=== PATIENT | female | born 1935 | race Caucasian/White ===

== ENCOUNTER 2019-11-16 22:44 | Inpatient (IN) | payer OTHER ==
[~2019-11-16] VITALS: Ht 172.7 cm; Wt 43.1 kg
[2019-11-16 22:50] VITALS: BP_SYST 164
[2019-11-16] MEDS ORDERED: NACL 0.9% 1,000 ML IV ONE (23:19)
[2019-11-16 23:20] LABS: BASOPHILS # (AUTO) 0.1 K/uL (0.0-0.2); BASOPHILS % (AUTO) 0.8 % (0.0-2.0); EOSINOPHILS # (AUTO) 0.3 K/uL (0.0-0.4); EOSINOPHILS % (AUTO) 2.4 % (0.0-4.0); HEMATOCRIT 30.6 % (36-48); HEMOGLOBIN 10.1 g/dL (12.0-16.0); LYMPHOCYTES # (AUTO) 0.7 K/uL (1.0-5.5); LYMPHOCYTES % (AUTO) 6.1 % (20.5-51.5); MEAN CORPUSCULAR HEMOGLOBIN 30 pg (27-31); MEAN CORPUSCULAR HGB CONC 33 % (32-36); MEAN CORPUSCULAR VOLUME 90 fL (79.0-98.0); MONOCYTES # (AUTO) 1.1 K/uL (0.0-1.0); NEUTROPHILS # (AUTO) 9.8 K/uL (1.8-7.7); NEUTROPHILS % (AUTO) 81.7 % (40.0-70.0); PLATELET COUNT (AUTO) 441 K/uL (130-430); RED BLOOD CELL COUNT(AUTO) 3.39 MIL/uL (4.2-6.2); RED CELL DISTRIBUTION WIDTH 15.6 % (9.0-15.0); WHITE BLOOD COUNT (AUTO) 11.9 K/uL (4.8-10.8)
[2019-11-16 23:33] LABS: ANION GAP 5 (5-15); CALCIUM 8.2 mg/dL (8.4-11.0); CHLORIDE 102 mmol/L (98-107); CREATININE 0.62 mg/dL (0.55-1.30); GLUCOSE 104 mg/dL (70-99); POTASSIUM 3.6 mmol/L (3.5-5.1); SODIUM SERUM 137 mmol/L (136-145); UREA NITROGEN, BLOOD 26 mg/dL (8-21)
[2019-11-16 23:39] LABS: ALANINE AMINOTRANSFERASE 54 U/L (12-78); ALBUMIN 2.6 g/dL (3.4-4.8); ASPARTATE AMINOTRANSFERASE 16 U/L (10-37); TOTAL BILIRUBIN 0.2 mg/dL (0.0-1.0)
[2019-11-16 23:41] LABS: ALCOHOL, BLOOD < 3 mg/dL (<10)
[2019-11-16] MEDS ORDERED: FURO-149 PO (23:44)
[2019-11-16] MEDS ORDERED: DORZ10DR9 EACH EYE (23:44)
[2019-11-16] MEDS ORDERED: HYDR-4272 PO (23:44)
[2019-11-16] MEDS ORDERED: DICL75TA5 PO (23:44)
[2019-11-16] MEDS ORDERED: ONDA4TAB5 PO (23:44)
[2019-11-16] MEDS ORDERED: TRIA1TAB96 PO (23:44)
[2019-11-16] MEDS ORDERED: XOP.63 NEB (23:44)
[2019-11-16] MEDS ORDERED: BUDE1AMP IH (23:44)
[2019-11-16] MEDS ORDERED: ZOLP10TA2 PO (23:44)
[2019-11-16] MEDS ORDERED: PROP10TA10 PO (23:44)
[2019-11-16] MEDS ORDERED: IPRA4AER INH (23:44)
[2019-11-16] MEDS ORDERED: ALBU2.5V7 INH (23:44)
[2019-11-16] MEDS ORDERED: XALEYE OP (23:44)
[2019-11-16] MEDS ORDERED: DET2 PO (23:44)
[2019-11-16] MEDS ORDERED: FLO44 INH (23:44)
[2019-11-16] MEDS ORDERED: BRI.2% EACH EYE (23:44)
[2019-11-16] MEDS ORDERED: SPIRIVA INH (23:44)
[2019-11-16] MEDS ORDERED: METO-442 PO (23:44)
[2019-11-17 04:26] LABS: BARBITURATE, URINE NEGATIVE (NEG <=200); BENZODIAZEPINE, URINE NEGATIVE (NEG <=150); CANNABINOID, URINE NEGATIVE (NEG <=50); COCAINE, URINE NEGATIVE (NEG <=150); METHAMPHETAMINES SCREEN,URINE NEGATIVE (NEG <=500); OPIATE, URINE POSITIVE (NEG <=100); PHENCYCLIDINE SCREEN,URINE POSITIVE (NEG <=25); UR TRICYCLIC ANTIDEPRESSANTS NEGATIVE (NEG <=300); URINE AMPHETAMINE NEGATIVE (NEG <=500); URINE METHADONE NEGATIVE (NEG <=200); URINE OXYCODONE SCREEN NEGATIVE (NEG <=100); URINE PROPOXYPHENE SCREEN NEGATIVE (NEG <=300)
[2019-11-17 04:30] VITALS: BP_SYST 191
[2019-11-17 05:14] VITALS: BP_SYST 165; BP_SYST 191
[2019-11-17] MEDS ORDERED: LevALBUTEROL HCL 1.25 MG/0.5 ML *CONC.* VIAL.NEB (XOPENEX CONC.) INH SCH ×2 (05:30→11:00)
[2019-11-17] MEDS: METOPROLOL TARTRATE 25 MG TABLET PO SCH ×2 (05:30→08:49)
[2019-11-17] MEDS ORDERED: IPRATROPIUM/ALBUTEROL SULFATE 3 ML AMPUL.NEB (DUONEB) INH SCH (07:00)
[2019-11-17 07:30] VITALS: BP_SYST 153
[2019-11-17] MEDS: BRIMONIDINE TARTRATE 0.2% 5 mL EYE DROPS EACH EYE SCH ×2 (08:50→22:00)
[2019-11-17] MEDS: DORZOLAMIDE 2% OPHTHALMIC SOLN 5ML OP SCH ×3 (08:51→21:56)
[2019-11-17] MEDS ORDERED: ALBUTEROL SULFATE 0.083% 2.5 MG/3 ML VIAL.NEB INH PRN (09:45)
[2019-11-17] MEDS ORDERED: LEVALBUTEROL HCL 0.63 MG/3 ML VIAL.NEB INH ONE (11:50)
[2019-11-17 12:00] VITALS: BP_SYST 126
[2019-11-17] MEDS ORDERED: LEVALBUTEROL HCL 0.63 MG/3 ML VIAL.NEB INH PRN (12:00)
[2019-11-17] MEDS ORDERED: ZOLPIDEM TARTRATE 5 MG TABLET PO PRN (12:15)
[2019-11-17] MEDS ORDERED: ONDANSETRON 4 MG ODT TAB PO PRN (12:15)
[2019-11-17] MEDS ORDERED: METOPROLOL TARTRATE 50 MG TABLET PO ONE (12:30)
[2019-11-17] MEDS ORDERED: OXYBUTYNIN CHLORIDE 5 MG TABLET PO ONE (12:30)
[2019-11-17] MEDS ORDERED: DICLOFENAC SODIUM 25 MG TABLET.DR PO ONE (12:30)
[2019-11-17] MEDS: IPRATROPIUM BROM 0.5 MG/2.5 ML VIAL.NEB (ATROVENT) INH SCH ×2 (13:00→19:50)
[2019-11-17] MEDS: LEVALBUTEROL HCL 0.63 MG/3 ML VIAL.NEB INH SCH ×2 (13:00→19:50)
[2019-11-17] MEDS ORDERED: DORZOLAMIDE 2% OPHTHALMIC SOLN 5ML OP SCH (15:00)
[2019-11-17 16:00] VITALS: BP_SYST 149
[2019-11-17] MEDS: LATANOPROST 2.5 ML DROPS (XALATAN) OP SCH (17:13)
[2019-11-17] MEDS ORDERED: guaiFENesin 200 MG/10 ML UDC PO PRN (19:45)
[2019-11-17] MEDS: BUDESONIDE 0.5 MG/2 ML AMPUL.NEB INH SCH (19:50)
[2019-11-17 20:00] VITALS: BP_SYST 149
[2019-11-17] MEDS ORDERED: BRIMONIDINE TARTRATE 0.2% 5 mL EYE DROPS EACH EYE SCH (21:00)
[2019-11-17] MEDS: METOPROLOL TARTRATE 50 MG TABLET PO SCH (21:49)
[2019-11-17] MEDS: DICLOFENAC SODIUM 25 MG TABLET.DR PO SCH (21:50)
[2019-11-17] MEDS: OXYBUTYNIN CHLORIDE 5 MG TABLET PO SCH (22:07)
[2019-11-18 00:38] VITALS: BP_SYST 144
[2019-11-18] MEDS: IPRATROPIUM BROM 0.5 MG/2.5 ML VIAL.NEB (ATROVENT) INH SCH ×3 (01:00→13:00)
[2019-11-18] MEDS: LEVALBUTEROL HCL 0.63 MG/3 ML VIAL.NEB INH SCH ×3 (01:00→13:00)
[2019-11-18 06:11] LABS: BASOPHILS # (AUTO) 0.2 K/uL (0.0-0.2); BASOPHILS % (AUTO) 2.1 % (0.0-2.0); EOSINOPHILS # (AUTO) 0.5 K/uL (0.0-0.4); EOSINOPHILS % (AUTO) 4.5 % (0.0-4.0); HEMATOCRIT 33.8 % (36-48); HEMOGLOBIN 11.1 g/dL (12.0-16.0); LYMPHOCYTES # (AUTO) 1.3 K/uL (1.0-5.5); LYMPHOCYTES % (AUTO) 12.4 % (20.5-51.5); MEAN CORPUSCULAR HEMOGLOBIN 30 pg (27-31); MEAN CORPUSCULAR HGB CONC 33 % (32-36); MEAN CORPUSCULAR VOLUME 93 fL (79.0-98.0); MONOCYTES % (AUTO) 9.6 % (1.7-9.3); NEUTROPHILS # (AUTO) 7.6 K/uL (1.8-7.7); NEUTROPHILS % (AUTO) 71.4 % (40.0-70.0); PLATELET COUNT (AUTO) 535 K/uL (130-430); RED BLOOD CELL COUNT(AUTO) 3.66 MIL/uL (4.2-6.2); RED CELL DISTRIBUTION WIDTH 15.5 % (9.0-15.0); WHITE BLOOD COUNT (AUTO) 10.6 K/uL (4.8-10.8)
[2019-11-18 06:16] LABS: ANION GAP 5 (5-15); CALCIUM 8.7 mg/dL (8.4-11.0); CHLORIDE 101 mmol/L (98-107); CREATININE 0.59 mg/dL (0.55-1.30); GLUCOSE 72 mg/dL (70-99); POTASSIUM 4.1 mmol/L (3.5-5.1); SODIUM SERUM 134 mmol/L (136-145); UREA NITROGEN, BLOOD 16 mg/dL (8-21)
[2019-11-18] MEDS: BUDESONIDE 0.5 MG/2 ML AMPUL.NEB INH SCH (08:13)
[2019-11-18 08:23] VITALS: BP_SYST 153
[2019-11-18] MEDS ORDERED: TIOTROPIUM BROMIDE 18 mcg/INHALATION (CAPSULE) INH SCH (09:00)
[2019-11-18] MEDS: DICLOFENAC SODIUM 25 MG TABLET.DR PO SCH (09:00)
[2019-11-18] MEDS ORDERED: LATANOPROST 2.5 ML DROPS (XALATAN) OP SCH (09:00)
[2019-11-18] MEDS: OXYBUTYNIN CHLORIDE 5 MG TABLET PO SCH (09:17)
[2019-11-18] MEDS: METOPROLOL TARTRATE 50 MG TABLET PO SCH (09:18)
[2019-11-18] MEDS: DORZOLAMIDE 2% OPHTHALMIC SOLN 5ML OP SCH ×2 (09:22→16:05)
[2019-11-18] MEDS: BRIMONIDINE TARTRATE 0.2% 5 mL EYE DROPS EACH EYE SCH (09:28)
[2019-11-18] MEDS ORDERED: SULFAMETHOXAZOLE/TRIMETHOPR DS 1 TABLET PO ONE (09:30)
[2019-11-18 14:34] VITALS: BP_SYST 136
[2019-11-18] MEDS: LATANOPROST 2.5 ML DROPS (XALATAN) OP SCH (18:00)
[2019-11-18] MEDS ORDERED: SULFAMETHOXAZOLE/TRIMETHOPR DS 1 TABLET PO SCH (21:00)
== END 2019-11-18 17:30 | disposition home health service (06) | DRG 91 ==
LOC: EDBD 22:44 → SED 22:44 → STU 11-17 03:11
PROVIDERS: ADMIT Internal Medicine; ATTEND Internal Medicine
DX: G92 Toxic encephalopathy (principal); E43 Unspecified severe protein-calorie malnutrition; J84.9 Interstitial pulmonary disease, unspecified; I10 Essential (primary) hypertension; F51.04 Psychophysiologic insomnia; I27.81 Cor pulmonale (chronic); M19.90 Unspecified osteoarthritis, unspecified site; M54.9 Dorsalgia, unspecified; J47.9 Bronchiectasis, uncomplicated; G89.4 Chronic pain syndrome; D63.8 Anemia in other chronic diseases classified elsewhere; T42.6X5A Adverse effect of other antiepileptic and sedative-hypnotic drugs, initial encounter; Y92.89 Other specified places as the place of occurrence of the external cause; Z87.01 Personal history of pneumonia (recurrent); Z79.899 Other long term (current) drug therapy; Z90.49 Acquired absence of other specified parts of digestive tract
CPT/HCPCS: 36415; 36600; 70450-TC; 71045; 80048; 80053; 80307; 82803-TC; 82962; 83605; 84484; 85025; 85610-TC; 85730-TC; 87040-TC; 87081; 93005; 93306; 94640; 96360; 99285; G0378; G0482; J7612; J7614; J7626